=== PATIENT | male | born 1990 | race Two or more races ===

== ENCOUNTER 2022-05-26 12:19 | Inpatient (IN) | payer OTHER ==
[~2022-05-26] VITALS: Ht 185.4 cm; Wt 104.3 kg
[2022-05-26] MEDS ORDERED: LORAZEPAM INJ 2 MG/ML VIAL IVP ONE (12:30)
[2022-05-26] MEDS ORDERED: IV NS 0.9% 1,000 ML BAG IV ONE (12:30)
[2022-05-26] MEDS ORDERED: LORAZEPAM INJ 2 MG/ML VIAL ONE ×2 (12:47→13:26)
[2022-05-26 12:52] LABS: BASOPHILS # (AUTO) 0.1 K/uL (0.0-0.2); BASOPHILS % (AUTO) 1.9 % (0.0-2.0); EOSINOPHILS % (AUTO) 1.2 % (0.0-6.0); HEMATOCRIT 37 % (39-51); HEMOGLOBIN 12.1 g/dL (13.5-17.5); LYMPHOCYTES # (AUTO) 0.9 K/uL (0.8-4.8); LYMPHOCYTES % (AUTO) 28.9 % (20.0-44.0); MEAN CORPUSCULAR HGB CONC 33 g/dl (31.0-36.0); MEAN CORPUSCULAR VOLUME 97 fL (80-96); MONOCYTES # (AUTO) 0.3 K/uL (0.1-1.30); MONOCYTES % (AUTO) 8.7 % (2.0-12.0); NEUTROPHILS # (AUTO) 1.9 K/uL (1.8-8.9); NEUTROPHILS % (AUTO) 59.3 % (43.0-81.0); RED BLOOD CELL COUNT(AUTO) 3.82 MIL/uL (4.5-6.0); WHITE BLOOD COUNT (AUTO) 3.2 K/uL (4.3-11.0)
[2022-05-26 12:55] LABS: PLATELET COUNT (AUTO) 43 K/uL (150-450)
[2022-05-26 13:05] LABS: ALBUMIN 3.6 g/dL (3.4-5.0); BILIRUBIN,DIRECT 1.5 mg/dL (0.0-0.2); BILIRUBIN,TOTAL 2.8 mg/dL (0.2-1.0); CALCIUM, SERUM 8.5 mg/dL (8.5-10.1); CREATININE 0.6 mg/dL (0.6-1.3); POTASSIUM 3.4 mmol/L (3.5-5.1); TOTAL PROTEIN, SERUM 8.5 g/dL (6.4-8.2)
[2022-05-26 13:16] LABS: BILIRUBIN,URINE NEGATIVE (NEGATIVE); COLOR,URINE DARK YELLOW (YELLOW); LEUKOCYTE ESTERASE ,URINE NEGATIVE (NEGATIVE); NITRITE, URINE NEGATIVE (NEGATIVE); PROTEIN,URINE TRACE mg/dl (NEGATIVE); UGLUCOSE NEGATIVE (NEGATIVE)
[2022-05-26 13:17] LABS: BACTERIA,URINE Rare /HPF (None Seen); MUCUS,URINE Many /LPF (None Seen); RBC,URINE 0-2 /HPF (0-2); SQUAMOUS EPITHELIAL CELL,UR Moderate /HPF (None Seen); WBC,URINE 0-2 /HPF (0-3)
[2022-05-26] MEDS ORDERED: PANT40TA49 PO (13:22)
[2022-05-26] MEDS ORDERED: AMLO-212 PO (13:22)
[2022-05-26] MEDS ORDERED: ONDA4TAB11 SL (13:22)
[2022-05-26] MEDS ORDERED: CYAN100T9 PO (13:22)
[2022-05-26] MEDS ORDERED: LORAZEPAM INJ 2 MG/ML VIAL IV ONE (13:30)
[2022-05-26] MEDS ORDERED: CHLO25CA10 PO (13:34)
[2022-05-26] MEDS ORDERED: FOLIC ACID 1 MG TABLET ONE (15:29)
[2022-05-26] MEDS ORDERED: THIAMINE HCL 100 MG TABLET ONE (15:29)
[2022-05-26] MEDS ORDERED: MAG HYDROX/AL HYDROX/SIMETH 30 ML UDC PO PRN (15:30)
[2022-05-26] MEDS ORDERED: ACETAMINOPHEN 325 MG TABLET PO PRN (15:30)
[2022-05-26] MEDS ORDERED: ONDANSETRON HCL/PF 4 MG/2 ML VIAL IVP PRN (15:30)
[2022-05-26] MEDS ORDERED: HYDROCODONE/APAP 5/325MG TABLET PO PRN (15:30)
[2022-05-26] MEDS: FOLIC ACID 1 MG TABLET PO SCH (15:34)
[2022-05-26] MEDS: THIAMINE HCL 100 MG TABLET PO SCH (15:34)
[2022-05-26] MEDS: IV D5/0.45 NACL 1,000 ML IV PRN (16:30)
[2022-05-26] MEDS: LORAZEPAM INJ 2 MG/ML VIAL IV SCH ×2 (16:50→21:15)
[2022-05-26 17:31] LABS: LYMPHOCYTES % (MANUAL) 30 % (16-48); MONOCYTES % (MANUAL) 6 % (0-11.0); NEUTROPHILS % (MANUAL) 64 (42-76)
[2022-05-26 17:42] VITALS: BP 140/81
[2022-05-26 20:00] VITALS: BP 144/77
[2022-05-26 20:18] VITALS: BP 144/77
[2022-05-26] MEDS ORDERED: MAGNESIUM HYDROXIDE 30 ML UDC PO PRN (22:00)
[2022-05-27] VITALS (8 sets, daily range): BP systolic 127–136; BP diastolic 68–85
[2022-05-27] MEDS: LORAZEPAM INJ 2 MG/ML VIAL IV SCH ×6 (01:12→20:18)
[2022-05-27] MEDS: IV D5/0.45 NACL 1,000 ML IV PRN ×3 (04:03→22:28)
[2022-05-27 06:17] LABS: BASOPHILS % (AUTO) 1.4 % (0.0-2.0); EOSINOPHILS % (AUTO) 3.6 % (0.0-6.0); HEMATOCRIT 34 % (39-51); HEMOGLOBIN 11.2 g/dL (13.5-17.5); LYMPHOCYTES # (AUTO) 0.9 K/uL (0.8-4.8); MEAN CORPUSCULAR HGB CONC 33 g/dl (31.0-36.0); MEAN CORPUSCULAR VOLUME 97 fL (80-96); MONOCYTES # (AUTO) 0.2 K/uL (0.1-1.30); MONOCYTES % (AUTO) 10.5 % (2.0-12.0); NEUTROPHILS # (AUTO) 1.1 K/uL (1.8-8.9); NEUTROPHILS % (AUTO) 46.5 % (43.0-81.0); RED BLOOD CELL COUNT(AUTO) 3.47 MIL/uL (4.5-6.0); WHITE BLOOD COUNT (AUTO) 2.3 K/uL (4.3-11.0)
[2022-05-27 06:33] LABS: CALCIUM, SERUM 8.3 mg/dL (8.5-10.1); CREATININE 0.6 mg/dL (0.6-1.3); MAGNESIUM 1.5 mg/dL (1.8-2.4); PHOSPHORUS 3.3 mg/dL (2.5-4.9); POTASSIUM 3.3 mmol/L (3.5-5.1)
[2022-05-27 07:37] LABS: PLATELET COUNT (AUTO) 31 K/uL (150-450)
[2022-05-27] MEDS: PANTOPRAZOLE 40 MG TABLET.DR PO SCH (07:43)
[2022-05-27 08:18] LABS: EOSINOPHILS % (MANUAL) 3 % (0-4); LYMPHOCYTES % (MANUAL) 38 % (16-48); MONOCYTES % (MANUAL) 10 % (0-11.0); NEUTROPHILS % (MANUAL) 49 (42-76)
[2022-05-27] MEDS: THIAMINE HCL 100 MG TABLET PO SCH (08:50)
[2022-05-27] MEDS: FOLIC ACID 1 MG TABLET PO SCH (08:50)
[2022-05-27] MEDS: AMLODIPINE BESYLATE 5 MG TABLET PO SCH (08:51)
[2022-05-27] MEDS: CYANOCOBALAMIN 100 MCG TABLET PO SCH (08:58)
[2022-05-27] MEDS ORDERED: POTASSIUM CHLORIDE 20 MEQ TAB.PRT.SR PO ONE (09:30)
[2022-05-27] MEDS: Magnesium 1GM/D5W 100ML PREMIX 100 ML IV SCH ×2 (11:55→12:55)
[2022-05-28] VITALS: BP 139/84
[2022-05-28] MEDS: LORAZEPAM INJ 2 MG/ML VIAL IV SCH ×3 (00:09→08:36)
[2022-05-28 04:00] VITALS: BP 122/65
[2022-05-28] MEDS: IV D5/0.45 NACL 1,000 ML IV PRN (05:33)
[2022-05-28 07:34] LABS: ALBUMIN 2.9 g/dL (3.4-5.0); BILIRUBIN,TOTAL 4.4 mg/dL (0.2-1.0); CALCIUM, SERUM 8.2 mg/dL (8.5-10.1); CREATININE 0.6 mg/dL (0.6-1.3); PHOSPHORUS 3.2 mg/dL (2.5-4.9); POTASSIUM 3.5 mmol/L (3.5-5.1); TOTAL PROTEIN, SERUM 7.3 g/dL (6.4-8.2)
[2022-05-28 07:36] LABS: BASOPHILS % (AUTO) 1.4 % (0.0-2.0); EOSINOPHILS % (AUTO) 3.8 % (0.0-6.0); HEMATOCRIT 35 % (39-51); HEMOGLOBIN 11.3 g/dL (13.5-17.5); LYMPHOCYTES # (AUTO) 0.9 K/uL (0.8-4.8); LYMPHOCYTES % (AUTO) 35.3 % (20.0-44.0); MEAN CORPUSCULAR HGB CONC 33 g/dl (31.0-36.0); MEAN CORPUSCULAR VOLUME 97 fL (80-96); MONOCYTES # (AUTO) 0.3 K/uL (0.1-1.30); MONOCYTES % (AUTO) 9.9 % (2.0-12.0); NEUTROPHILS # (AUTO) 1.3 K/uL (1.8-8.9); NEUTROPHILS % (AUTO) 49.6 % (43.0-81.0); RED BLOOD CELL COUNT(AUTO) 3.56 MIL/uL (4.5-6.0); WHITE BLOOD COUNT (AUTO) 2.6 K/uL (4.3-11.0)
[2022-05-28 07:48] LABS: PLATELET COUNT (AUTO) 35 K/uL (150-450)
[2022-05-28] MEDS: AMLODIPINE BESYLATE 5 MG TABLET PO SCH (08:35)
[2022-05-28] MEDS: PANTOPRAZOLE 40 MG TABLET.DR PO SCH (08:35)
[2022-05-28] MEDS: FOLIC ACID 1 MG TABLET PO SCH (08:35)
[2022-05-28] MEDS: THIAMINE HCL 100 MG TABLET PO SCH (08:35)
[2022-05-28] MEDS: CYANOCOBALAMIN 100 MCG TABLET PO SCH (08:39)
[2022-05-28 09:28] VITALS: BP 135/85
[2022-05-28 11:16] VITALS: BP 132/70
[2022-05-28] MEDS ORDERED: MAGNESIUM OXIDE 400 MG TABLET PO ONE (12:00)
[2022-05-28 12:14] LABS: EOSINOPHILS % (MANUAL) 5 % (0-4); LYMPHOCYTES % (MANUAL) 33 % (16-48); MONOCYTES % (MANUAL) 9 % (0-11.0); NEUTROPHILS % (MANUAL) 53 (42-76)
== END 2022-05-28 12:00 | disposition left against medical advice (07) | DRG 660 ==
LOC: ER 12:25 → MED 15:13 → TELE 15:55
PROVIDERS: ATTEND Nurse Practitioner Family
DX: D61.89 Other specified aplastic anemias and other bone marrow failure syndromes (principal); D69.6 Thrombocytopenia, unspecified; K74.60 Unspecified cirrhosis of liver; E80.6 Other disorders of bilirubin metabolism; E87.6 Hypokalemia; F10.229 Alcohol dependence with intoxication, unspecified; F10.239 Alcohol dependence with withdrawal, unspecified; D61.818 Other pancytopenia; F19.10 Other psychoactive substance abuse, uncomplicated; Y90.5 Blood alcohol level of 100-119 mg/100 ml; Z20.822 Contact with and (suspected) exposure to COVID-19; Z79.899 Other long term (current) drug therapy; Z87.09 Personal history of other diseases of the respiratory system; R74.01 Elevation of levels of liver transaminase levels; E83.42 Hypomagnesemia; F41.9 Anxiety disorder, unspecified; R25.1 Tremor, unspecified
CPT/HCPCS: 36415; 76705-TC; 80048-TC; 80053-TC; 80076-TC; 81001; 83735-TC; 84100-TC; 85025-TC; 87081-TC; A4223; G0378; G0480; J2060; J2405; J3475; J3490; J7030